=== PATIENT | female | born 1970 | race African-American/Black ===

== ENCOUNTER 2020-09-04 23:10 | Emergency (ER) | payer SELFPAY ==
[~2020-09-04] VITALS: Ht 167.6 cm; Wt 79.5 kg
--- NOTE | 2020-09-05 00:46 | PHYS DOC ---
Past Medical History Past Medical History: GERD Additional Past Medical Histor: Multiple sclerosis (KARIE SUTTON DO) Past Surgical History: No Surgical History (KARIE SUTTON DO) Smoking Status: Never Smoker Alcohol Use: None Drug Use: None (KARIE SUTTON DO) Adult General Chief Complaint Chief Complaint: OTHER COMPLAINTS [facility] HPI Patient is a 50 year old female with a known history of multiple sclerosis currently coming from a halfway for altered mental status and bizarre behavior. According to the nursing staff she has been present at the halfway for approximately 3 weeks for multiple sclerosis. Feel that over the last 24 hours the patient is developed worsening combative and bizarre behavior. States that she has been acting though she does not know anybody and attempted to strike to the staff. No known recent fevers, cough, fever, chills. Patient currently is not providing any significant clinical history. (SANDRA PITTS MD) Review of Systems Review of Systems Constitutional: Denies fever or chills [] Eyes: Denies change in visual acuity, redness, or eye pain [] HENT: Denies nasal congestion or sore throat [] Respiratory: Denies cough or shortness of breath [] Cardiovascular: No additional information not addressed in HPI [] GI: Denies abdominal pain, nausea, vomiting, bloody stools or diarrhea [] : Denies dysuria or hematuria [] Musculoskeletal: Denies back pain or joint pain [] Integument: Denies rash or skin lesions [] Neurologic: Denies headache, focal weakness or sensory changes [] Endocrine: Denies polyuria or polydipsia [] All other systems were reviewed and found to be within normal limits, except as documented in this note. (SANDRA PITTS MD) Current Medications Current Medications Current Medications Medications (Trade) Dose Ordered Sig/Radha Start Time Stop Time Status Last Admin Dose Admin Haloperidol Lactate (Haldol Inj) 5 mg 1X ONCE 09/05/20 02:00 09/05/20 02:01 DC 09/05/20 01:37 5 MG (KARIE SUTTON DO) Allergies Allergies Allergies Coded Allergies Type Severity Reaction Last Updated Verified No Known Drug Allergies 09/04/20 No (KARIE SUTTON DO) Physical Exam Physical Exam Constitutional: Well developed, well nourished, no acute distress, non-toxic appearance. [] HENT: Normocephalic, atraumatic, bilateral external ears normal, oropharynx moist, no oral exudates, nose normal. [] Eyes: PERRLA, EOMI, conjunctiva normal, no discharge. [] Neck: Normal range of motion, no tenderness, supple, no stridor. [] Cardiovascular:Heart rate regular rhythm, no murmur [] Lungs & Thorax: Bilateral breath sounds clear to auscultation [] Abdomen: Bowel sounds normal, soft, no tenderness, no masses, no pulsatile masses. [] Skin: Warm, dry, no erythema, no rash. [] Back: No tenderness, no CVA tenderness. [] Extremities: No tenderness, no cyanosis, no clubbing, ROM intact, no edema. [] Neurologic: Alert and oriented X 3, normal motor function, normal sensory function, no focal deficits noted. [] Psychologic: Affect flat, noncooperative judgement normal, mood normal. [] (SANDRA PITTS MD) Physical Exam Constitutional: Well developed, well nourished, no acute distress, non-toxic appearance HENT: Normocephalic, atraumatic Eyes: Conjunctiva normal, no discharge Neck: Normal range of motion, supple Lungs & Thorax: No respiratory distress, equal chest rise and fall Skin: Warm, dry, no erythema, no rash Extremities: No tenderness, no edema Neurologic: Alert and oriented X 3, speech slow to respond, minimal movement of legs Psychologic: Affect flat, judgment normal (SUTTON,KARIE R DO) Current Patient Data Vital Signs Vital Signs Date Time Temp Pulse Resp B/P (MAP) Pulse Ox O2 Delivery O2 Flow Rate FiO2 09/05/20 03:43 92 158/81 (106) 92 Room Air 09/04/20 23:15 97.9 18 97.9 (SUTTON,KARIE R DO) Lab Values Laboratory Tests Test 09/05/20 03:42 White Blood Count 6.5 x10^3/uL (4.0-11.0) Red Blood Count 4.80 x10^6/uL (3.50-5.40) Hemoglobin 14.3 g/dL (12.0-15.5) Hematocrit 42.0 % (36.0-47.0) Mean Corpuscular Volume 88 fL (79-100) Mean Corpuscular Hemoglobin 30 pg (25-35) Mean Corpuscular Hemoglobin Concent 34 g/dL (31-37) Red Cell Distribution Width 18.2 % (11.5-14.5) H Platelet Count 234 x10^3/uL (140-400) Sodium Level 142 mmol/L (136-145) Potassium Level 4.0 mmol/L (3.5-5.1) Chloride Level 105 mmol/L (98-107) Carbon Dioxide Level 28 mmol/L (21-32) Anion Gap 9 (6-14) Blood Urea Nitrogen 15 mg/dL (7-20) Creatinine 0.6 mg/dL (0.6-1.0) Estimated GFR (Cockcroft-Gault) 127.5 Glucose Level 113 mg/dL (70-99) H Calcium Level 9.4 mg/dL (8.5-10.1) Laboratory Tests 09/05/20 03:42 Laboratory Tests 09/05/20 03:42 (KARIE SUTTON DO) EKG EKG [] (SANDRA PITTS MD) EKG @0125 NSR at 89bpm, NO ST elevation, QRS 94ms, QT/QTc 382/466ms, baseline artifact noted, t wave inversion aVL (KARIE SUTTON DO) Radiology/Procedures Radiology/Procedures [] (SANDRA PITTS MD) Radiology/Procedures PROCEDURE: PORTABLE CHEST 1V AP portable chest radiograph 09/05/2020 Clinical History: Unexplained altered mental status.. An AP erect portable digital radiograph of the chest was obtained. No previous studies are available for comparison. The cardiac silhouette is borderline enlarged. The thoracic aorta is tortuous. Atherosclerotic calcification of the thoracic aorta is seen. Elevation of the right hemidiaphragm is noted. No acute pulmonary infiltrate is seen. No pleural effusion or pneumothorax is identified. Degenerative changes are seen involving the thoracic spine. IMPRESSION: No acute abnormality is seen. Electronically signed by: Liam Drummond MD (09/05/2020 1:44 AM) [id number] PROCEDURE: CT HEAD WO CONTRAST CT scan of the head without contrast 09/05/2020 Clinical History: Altered mental status. Technique: Unenhanced, contiguous, 5 mm axial sections were obtained through the head. One or more of the following individualized dose reduction techniques were utilized for this study: 1. Automated exposure control. 2. Adjustment of the mA and/or kV according to patient size. 3. Use of iterative reconstruction technique. Findings: There is mild generalized parenchymal atrophy. Areas of decreased attenuation are seen within the periventricular and subcortical white matter of both cerebral hemispheres consistent with areas of small vessel ischemic disease. No acute parenchymal abnormality is seen. No extra-axial fluid collection is noted. No skull fracture is seen. Impression: No acute intracranial abnormality is seen. Electronically signed by: Liam Drummond MD (09/05/2020 1:23 AM) [id number] (KARIE SUTTON DO) Course & Med Decision Making Course & Med Decision Making Pertinent Labs and Imaging studies reviewed. (See chart for details) 50F presented with nonspecific altered mental status and what appears to be bizarre behavior concerning for acute psychiatric deterioration. At this time will obtain infectious work-up to make sure there is no significant underlying etiology and then anticipate need for psychiatric evaluation. (SANDRA PITTS MD) Course & Med Decision Making [id number]-signout received from Dr. Pitts for patient from halfway that presents today for psychiatric evaluation. Patient does have a history of MS. Patient was previously seen by Dr. Pitts and medically screened. PAT assessment performed. PAT deemed patient safe for discharge back to nursing facility. Labs reviewed. COVID testing was ordered in case of inpatient psychiatric need. COVID testing pending at this time. CT head and chest x-ray also reviewed and posted to chart. Patient seen and evaluated by myself. Patient reports that facility does not listen to her. Reports she has a licensed clinical social worker that she will discuss her frustrations with the facility regarding. Patient stable for discharge back to nursing facility with outpatient follow-up with PCP. Discussed findings and plan with patient, who acknowledges understanding and agreement. (KARIE SUTTON DO) Dragon Disclaimer Dragon Disclaimer This electronic medical record was generated, in whole or in part, using a voice recognition dictation system. (SANDRA PITTS MD) Departure Departure Impression: Primary Impression: Encounter for psychiatric assessment Additional Impression: Hx of multiple sclerosis Disposition: 01 DC HOME SELF CARE/HOMELESS (back to [facility]- [facility] [place]) Condition: STABLE Patient Instructions: Multiple Sclerosis Problem Qualifiers SANDRA PITTS MD Sep 05, 2020 00:46 KARIE SUTTON DO Sep 05, 2020 06:37
--- NOTE | 2020-09-05 01:25 | RAD ---
CT scan of the head without contrast 09/05/2020 Clinical History: Altered mental status. Technique: Unenhanced, contiguous, 5 mm axial sections were obtained through the head. One or more of the following individualized dose reduction techniques were utilized for this study: 1. Automated exposure control. 2. Adjustment of the mA and/or kV according to patient size. 3. Use of iterative reconstruction technique. Findings: There is mild generalized parenchymal atrophy. Areas of decreased attenuation are seen with in the periventricular and subcortical white matter of both cerebral hemispheres consistent with area s of small vessel ischemic disease. No acute parenchymal abnormality is seen. No extra-axial fluid co llection is noted. No skull fracture is seen. Impression: No acute intracranial abnormality is seen. Electronically signed by: Liam Drummond MD (09/05/2020 1:23 AM) [id number]
--- NOTE | 2020-09-05 01:46 | RAD ---
AP portable chest radiograph 09/05/2020 Clinical History: Unexplained altered mental status.. An AP erect portable digital radiograph of the chest was obtained. No previous studies are available for comparison. The cardiac silhouette is borderline enlarged. The thoracic aorta is tortuous. Atherosclerotic calcif ication of the thoracic aorta is seen. Elevation of the right hemidiaphragm is noted. No acute pulmon jacque infiltrate is seen. No pleural effusion or pneumothorax is identified. Degenerative changes are s een involving the thoracic spine. IMPRESSION: No acute abnormality is seen. Electronically signed by: Liam Drummond MD (09/05/2020 1:44 AM) [id number]
[2020-09-05] MEDS ORDERED: HALOPERIDOL LACTATE 5 MG/ML VIAL. IM ONE (02:00)
[2020-09-05 03:59] LABS: HEMOGLOBIN 14.3 g/dL (12.0-15.5); RED BLOOD COUNT 4.8 x10^6/uL (3.50-5.40); RED CELL DISTRIBUTION WIDTH 18.2 % (11.5-14.5); WHITE BLOOD COUNT 6.5 x10^3/uL (4.0-11.0)
[2020-09-05 04:12] LABS: CALCIUM 9.4 mg/dL (8.5-10.1); CREATININE 0.6 mg/dL (0.6-1.0); GFR 127.5
[2020-09-05 08:30] VITALS: BP 149/76
--- NOTE | 2020-09-05 18:34 | EKG ---
[facility] [address] [place] [id number] Test Date: 2020-09-05 Test Time: 01:25:22 Pat Name: RL GIL Department: Room: Gender: F [place]: : 1970 Requested By: SANDRA PITTS Order Number: [id number] Reading MD: Measurements Intervals [place] Rate: 89 P: 36 HI: 160 QRS: -30 QRSD: 94 T: 75 QT: 382 QTc: 466 Interpretive Statements SINUS RHYTHM LEFT ATRIAL ABNORMALITY ABNORMAL LEFT AXIS DEVIATION R-S TRANSITION ZONE IN V LEADS DISPLACED TO THE LEFT CONSIDER LEFT VENTRICULAR HYPERTROPHY T ABNORMALITY IN ANTERIOR LEADS HIGH LATERAL LEADS ABNORMAL ECG RI6.02 No previous ECG available for comparison
== END 2020-09-05 08:30 | disposition home or self-care (01) ==
LOC: ER 23:10
DX: R41.82 Altered mental status, unspecified (principal); R46.1 Bizarre personal appearance; K21.9 Gastro-esophageal reflux disease without esophagitis
CPT/HCPCS: 36415; 70450; 71045; 80048; 85027; 93005; 96372; 99285; J1630